=== PATIENT | female | born 1965 | race Caucasian/White ===

== ENCOUNTER → 2020-03-10 | Outpatient (CLI) | payer OTHER | END | disposition home or self-care (01) | LOC: COVID19 00:34 | DX: R53.83 Other fatigue (principal); Z20.828 Contact with and (suspected) exposure to other viral communicable diseases ==

== ENCOUNTER 2024-02-01 14:55 | Emergency (ER) | payer OTHER ==
[~2024-02-01] VITALS: Ht 157.4 cm; Wt 70.3 kg
[2024-02-01] MEDS ORDERED: CITALOPRAM10 MG PO (15:43)
[2024-02-01] MEDS ORDERED: TRIAMTERENE PO (15:43)
[2024-02-01] MEDS ORDERED: diphenhydrAMINE hydrochloride 50 MG/ML VIAL IM ONE (16:10)
[2024-02-01] MEDS ORDERED: Dexamethasone Sodium Phospha 20 MG/5 ML VIAL IM ONE (16:10)
[2024-02-01] MEDS ORDERED: VALTREX1000 MG PO (17:24)
== END 2024-02-01 17:37 | disposition home or self-care (01) ==
LOC: ED 14:55
DX: B02.9 Zoster without complications (principal); F32.A Depression, unspecified; Z91.018 Allergy to other foods